=== PATIENT | female | born 1975 | race Hispanic/Latino ===

== ENCOUNTER 2025-05-15 13:28 | Outpatient (CLI) | payer OTHER | END 2025-05-15 13:29 | disposition home or self-care (01) | LOC: BICRAD 13:28 | PROVIDERS: ATTEND Family Medicine | DX: S99.919A Unspecified injury of unspecified ankle, initial encounter (principal); S82.832K Other fracture of upper and lower end of left fibula, subsequent encounter for closed fracture with nonunion ==